=== PATIENT | male | born 1970 | race Two or more races ===

== ENCOUNTER 2025-02-28 11:02 | Outpatient (AMB) | payer MEDICARE, MEDICAID, SELFPAY ==
--- NOTE | 2025-02-28 07:49 | MHC.OFFVIS ---
Intake Visit Reasons: LDCT Allergies dextromethorphan (From NYQUIL) Allergy (Mild, Unverified 01/09/20 17:17) REDNESS doxylamine (From NYQUIL) Allergy (Mild, Unverified 01/09/20 17:17) REDNESS pseudoephedrine (From NYQUIL) Allergy (Mild, Unverified 01/09/20 17:17) REDNESS tramadol (TRAMADOL) Allergy (Mild, Unverified 01/09/20 17:17) RECTAL BLEEDING cortisone (CORTISONE) Allergy (Unknown, Unverified 01/09/20 17:17) LOCAL REACTION AND HIVES hydrocodone (HYDROCODONE) Adverse Reaction (Mild, Unverified 01/09/20 17:17) UNABLE TO SLEEP acetaminophen (Vicodin) Adverse Reaction (Unknown, Verified 06/26/15 00:00) insomnia Cortisone Adverse Reaction (Unknown, Uncoded 06/26/15 00:00) skin peels, burning sensation NyQuil Adverse Reaction (Unknown, Uncoded 06/26/15 00:00) dry skin HPI HPI LDCT: Details: Initial visit for this 54yo smoker with a 40PYH. Patient started smoking at age 11 for 39 years at 1+ppd. Quit almost 4 years ago in 04/2021. . Denies marijuana use. Denies second hand smoke exposure. Denies exposure to chemicals or substances like asbestos. . Denies known family history of lung cancer. Denies personal history of cancers. Denies chest CT in last year. . Denies recent travel outside the [place]. Denies recent respiratory illness or recent hospitalization for respiratory issues. Denies testing positive for COVID. Denies receiving COVID Vaccine. . Denies fever, chills, new/worsening cough, hemoptysis, hoarseness or dysphagia. Denies significant chest pain, significant dyspnea or unintentional weight loss. Patient Lung Cancer Screening Questionnaire reviewed with patient by provider. . Shared Decision Making Completed. Patient meets criteria. Discussed in detail with patient, the risk vs benefit of LDCT screening. Patient consents to proceed with scan. Discussed smoking cessation. [facility] Medical History (Updated 02/28/25 @ 11:33 by Emily Cintron PA-C) Type 2 diabetes mellitus Hyperlipidemia Hypertension Personal history of nicotine dependence Surgical History (Updated 02/28/25 @ 11:25 by Emily Cintron PA-C) History of tooth extraction Social History (Updated 02/28/25 @ 11:33 by Emily Cintron PA-C) Patient Tobacco Use Status: Former Tobacco user Years Smoked: (onset 11yo, 1+ppd x 39yrs, 40pyh, quit 04/2021) Assessment & Plan Assessment & Plan (1) Personal history of nicotine dependence: Comment: (onset 11yo, 1+ppd x 39yrs, 40pyh, quit 04/2021) Code(s): Z87.891 - Personal history of nicotine dependence Category: Medical Plan: - SDM visit completed today in office. - Patient meets criteria for LDCT for lung cancer screening purposes and is asymptomatic. - Smoking cessation counseling offered. Patients can always call [phone]. - Will arrange for a LDCT scan of the chest for screening purposes at [facility]. - Risks, benefits, and alternatives were discussed in detail and the patient agrees to proceed. - Risks discussed include but are not limited to: radiation exposure, anxiety during testing and while awaiting results, false negatives, false positives and possibility of additional intervention such as further imaging or surgical procedures for benign disease. - Benefits are obviously detection of lung cancer at an early stage which can lead to improved outcomes. - Discussed the importance of screening program compliance with adherence to yearly LDCT scan as scheduled - or sooner interval scans for personalized screening regimen. - Discussed follow up plan. Our office will send a letter discussing results and if needed set up phone call and office visit based on CT findings. - Patient educated on results categorization and the management decisions for suspicious findings potentially found on the screening LDCT scan. Any patient with a Lung RADS score of 3 or 4 will be reviewed by a multidisciplinary team at [facility] to form a plan of action in regards to scan findings. - If further work up is warranted for a suspicious lung finding this will be followed by the Lung Cancer Screening program in conjunction with the Thoracic Surgery Department at [facility]. - A copy of the office note and LDCT will be sent to the patient's PCP - as well as documentation on any associated further plans of care. - Incidental findings on LDCT are the PCP's responsibility. These findings are indicated with an S finding on the LDCT Assessment. A note discussing the findings will be sent to the PCP who is then responsible for further management. - All questions answered.? Coding Level of Care Code Lung Cancer Screening G0296 Diagnoses Personal history of nicotine dependence Z87.891
--- OUTSIDE RECORDS SUMMARY | 2025-02-28 13:13 | XMS_ITS | Clinical Summary ---
Author Organization [employer] Address [address] [place] [address] Care Team Providers Care Setter Out Name Role Phone Davis Fregoso MD Primary Care Prov ider Allergies Active Allergy Reactions Criticality Noted Date Comments Germanium Hives 12/09/2024 Medications metFORMIN (Glucophage) 1000 MG tablet Take 1,000 mg by mouth with breakfast and with evening meal. Active simvastatin (Zocor) 20 MG tablet Take 20 mg by mouth at bedtime. Active Active Problems Problem Noted Date Diagnosed Date Type 2 diabetes mellitus wit hout complication, without long-term current use of insulin 02/03/2025 Encounter for medical examination to establish c are 12/09/2024 Assessment & Plan (12/09/2024 2:09 PM EDT): Last pcp visit over 8 months ER: jose 07/2024 abdominal pain/gastroenteritis Hospitalizations: - Pmhx; DM, hyperlipidemia, htn, lumbar disc disease, knee OA Pshx: - All: lumbar cortisone shot (tachycardia) Meds: metformin 1000mg bid, simvastatin 20mg, Colonosocpy: done 1 year ago at [facility], refers told to be repeated in 10 yrs Encounters Date Type Department Care Team Description 12/09/2024 1:45 PM EDT Telemedicine [facility] [address] [place] [address] Davis Fregoso MD Encounter for medical examination to establish care (Primary Dx); Type 2 diabetes mellitus without complication, without long-term current use of insulin ([facility]) 12/09/2024 Travel 12/06/2024 Telephone [facility] [address] [place] [address] Davis Fregoso MD chart prep from Last 3 Months Family History Medical History Relation Name Comments Diabetes Father Diabetes Mother Lupus Mother Relation Name Status Comments Father Mother Social History Tobacco Use Types Packs/Day Years Used Date Smoking Tobacco: Former Cigarettes 1 34 S tarted: 1986 Smokeless Tobacco: Never Tobacco Cessation:Counseling Given: Not Answered Alcohol Use Standard Drinks/Week Comments Not Currently 0 (1 standard drink = 0.6 oz pur e alcohol) Depression Answer Date Recorded Patient Health Questionnaire-9 Score 7 12/09/2024 Patient Health Questionnaire-9 Score 7 12/09/2024 Last PHQ-9: Questionnaire Data Not on file 0 12/09/2024 Depression Answer Date Recorded Patient Health Questionnaire-2 Score 2 12/09/2024 Sex and Gender Information Value Date Recorded Sex Assigned at Male 12/03/2024 3:23 PM EDT Legal Sex Male 3:22 PM EDT Gender Identity Male 12/03/2024 3:23 PM EDT Sexual Orientation Straight 12/03/2024 3: 23 PM EDT Plan of Treatment Health Maintenance Due Date Last Done Comments CT Colonography 1972 Colonoscopy 1972 Colorectal Cancer Screening 1972 FIT DNA/Cologuard 1972 FIT 1972 FOBT 1972 HIV Screening 1972 Lipid Panel 1972 SDOH Screening 1972 Sigmoidoscopy 1972 Disability Screening 1972 Diabetes: Foot Exam 1982 Eye Exam 1982 Alcohol/Substance Use Screening 1984 Family Planning (PISQ) 1987 Hepatitis C Screening 1990 Diabetes: Urine Protein Screening 1991 Hepatitis B Vaccines (1 of 3 - 19+ 3-dose series) 1991 Pneumococcal Vaccine: 50+ Years (1 of 2 - PCV) 1991 Diabetes: Hemoglobin A1C 04/18/2016 01/18/2016 DTaP/Tdap/Td Vaccines (2 - T d or Tdap) 07/14/2016 07/14/2006 Zoster Vaccines (1 of 2) 2022 COVID-19 Vaccine (1 - 2023-2 5 season) 2024 Influenza Vaccine (#1) 2024 6, 04/13/2010, 02/13/2007 Depression Screening 12/09/2025 12/09/2024, 12/09/2024 Tobacco Screening 02/03/2026 02/03/2025 RSV Patients and Patients Aged 60 years or older (1 - 1-dose 75+ series) 2047 HIB Vaccines Aged Out No longer eligi ble based on patient's age to complete this topic HPV Vaccines Aged Out No longer eligi ble based on patient's age to complete this topic Hepatitis A Vaccines Aged Out No long er eligible based on patient's age to complete this topic IPV Vaccines Aged Out No longer eligi ble based on patient's age to complete this topic Meningococcal B Vaccine Aged Out No l onger eligible based on patient's age to complete this topic Meningococcal Vaccine Aged Out No juliet nawaf eligible based on patient's age to complete this topic RSV under 20 months Aged Out No longe r eligible based on patient's age to complete this topic Rotavirus Vaccines Aged Out No longer eligible based on patient's age to complete this topic [place] [address] [place] [address] MEDICARE ADVANTAGE HMO [facility] Care Teams Setter Out Relationship Specialty Start Date End Date Davis Fregoso MD [address] [place] [phone] PCP - General Internal Medicine 12/11/24
== END 2025-02-28 12:49 | disposition home or self-care (01) ==
PROVIDERS: PCP Internal Medicine; Referring Provider Internal Medicine; Visit Provider Physician Assistant Medical
DX: Z87.891 Personal history of nicotine dependence (principal)
CPT/HCPCS: G0296

== ENCOUNTER 2025-02-28 11:33 | Outpatient (REF) | payer MEDICARE, SELFPAY ==
--- NOTE | ~2025-02-28 | CT_ITS ---
EXAMINATION: CT LUNG SCREENING HISTORY: Z87.891 - Personal history of nicotine dependence TECHNIQUE: Low dose axial images were obtained from the sternal notch to upper abdomen without IV contrast per standard departmental protocol. Sagittal and coronal reformatted images were also obtained and reviewed. One or more of the following techniques was used for dose reduction: Automated exposure control, adjustment of the mA and/or kV according to patient size, use of iterative reconstruction technique. DLP: 84 mGy-cm COMPARISON: There are no prior studies available for comparison. FINDINGS: Lung nodules: There are 1-2 mm nodules in the right upper lobe (series 4, image 52) and in the left upper lobe (series 4, image 45). A 3 mm nodule along the right minor fissure likely represents a tiny lymph node. Emphysema: mild Coronary Calcification: moderate Aortic Arch Calcification: none Potentially Significant Incidentals : none Additional Chest Findings: There is no pleural or pericardial effusion. No mediastinal or axillary lymphadenopathy is identified. Visualized upper abdomen: The visualized portions of the liver, spleen, and adrenals have an unremarkable unenhanced appearance. CT/CT lung screening IMPRESSION: No suspicious pulmonary nodules are identified. LUNG-RADS ASSESSMENT: Lung-RADS 2: Benign MANAGEMENT: Continue annual screening with LDCT in 12 months Category S: N/A Electronically signed by: Eldon Mike MD 02/28/2025 12:22 PM [facility]
--- OUTSIDE RECORDS SUMMARY | 2025-02-28 13:59 | XMS_ITS | Clinical Summary ---
Author Organization [facility] Address [address] [place] [address] Phone Care Team Providers Care [employer]r Name Role Phone Yves Caro MD Primary Care Provider [phone] Allergies Active Allergy Reactions Criticality Noted Date Comments Hydrochlorothiazide 09/24/2007 diziness Latex Hives 07/03/2024 Medications fentaNYL (DURAGESIC) 100 mcg/hr Place 1 Patch onto the skin every 72 hours. Active glipiZIDE (GLUCOTROL XL) 5 mg 24 hr tablet Take 1 tablet (5 mg total) by mouth 1 (one) time each day. 01/20/2016 Active lisinopriL (PRINIVIL,ZESTR IL) 20 mg tablet Take 1 tablet (20 mg total) by mouth 1 (one) time each day. 01/20/2016 Active metFORMIN (GLUCOPHAGE) 1,000 mg tablet Take 1,000 mg by mouth 2 times daily (with meals). 01/20/2016 Active oxyCODONE (ROXICODONE) 30 mg immediate release tablet Take 30 mg by mouth every 4 hours as needed. Active QUEtiapine (SEROquel) 50 mg tablet Take 50 mg by mouth 2 times daily. Active simvastatin (ZOCOR) 20 mg tablet Take 1 Tab by mouth at bedtime. 01/20/2016 Active zolpidem (AMBIEN) 10 mg tablet Take by mouth at bedtime as needed. Active Active Problems Problem Noted Date Diagnosed Date Type 2 diabetes mellitus (CMS/HCC V24, CMS/HCC V 28) 08/11/2009 Acne 06/16/2007 Low back pain 06/16/2007 Overview (05/15/2024): Radiated to both legs Seen by Adela in past. ?appt 08/07 Pt states intol injection med (?steroid) Allergic rhinitis 07/14/2006 Asthma 07/14/2006 Essential hypertension, benign 07/14/2006 Obesity, unspecified 07/14/2006 Immunizations Immunization Administration Dates Next Due Influenza trivalent, with pr eservative (Fluzone; Afluria) 6mo and older 01/20/2016,04/13/2010,02/13/2007 Tdap Tetanus diptheria acell ular pertussis (Boostrix; Adacel) 7yo and older 07/14/2006 Medical History Medical History Date Comments Other acne 07/14/2006 DX:Other acne Obesity, unspecified 07/14/2006 DX:Obesity, unspecified Other atopic dermatitis and related conditions 07/14/2006 DX:Other atopic dermatitis a nd related conditions Unspecified asthma(493.90) 07/14/2006 DX:Un specified asthma(493.90) Otalgia, unspecified 01/10/2007 DX:Otalgia, unspecified Type II or unspecified type diabetes mellitus with unspecified complication, not stated as uncontrolled DX:Type II or unspecified ty pe diabetes mellitus with unspecified complication, not stated as uncontrolled Essential hypertension, benign 07/14/2006 D X:Essential hypertension, benign Family History Medical History Relation Name Comments Cataracts Mother Other: lupus Mother Blindness Neg Hx Glaucoma Neg Hx Macular degeneration Neg Hx Strabismus Neg Hx Relation Name Status Comments Brother 1 Alive DM Brother 2 Alive thyroid problem s Brother 3 Alive Brother 4 Alive Father Alive Mother Alive DM, ESRD on HD. Sister 1 Alive Sister 2 Alive Sister 3 Alive Social History Tobacco Use Types Packs/Day Years Used Date Smoking Tobacco: Every Day Cigarettes Last attempted to quit: 09/10/2005 Smokeless Tobacco: Never Alcohol Use Standard Drinks/Week Comments Not Asked 0 (1 standard drink = 0.6 oz pur e alcohol) Sex and Gender Information Value Date Recorded Sex Assigned at Not on file Legal Sex Male 11:29 PM EST Gender Identity Not on file Sexual Orientation Not on file Obstetrics History Last Filed Vital Signs Vital Sign Reading Time Taken Comments Blood Pressure 141/87 07/04/2024 5:00 AM EDT Pulse 75 07/04/2024 5:00 AM EDT Temperature 36.7 C (98 F) 07/04/2024 3:36 AM EDT Respiratory Rate 15 07/04/2024 5:00 AM EDT Oxygen Saturation 99% 07/04/2024 5:00 AM EDT Inhaled Oxygen Concentration - - Weight 89.8 kg (198 lb) 07/03/2024 8:47 PM EDT Height 165.1 cm (5' 5 ) 07/03/2024 8:47 PM EDT Body Mass Index 32.95 07/03/2024 8:47 PM EDT Plan of Treatment Health Maintenance Due Date Last Done Comments Colorectal Cancer Screening: Colonoscopy 1972 Diabetes: Annual Foot Exam 1982 Diabetes: Annual Retina Eye Exam 1982 Hepatitis B Vaccines (1 of 3 - 19+ 3-dose series) 1991 DTaP,Tdap,and Td Vaccines (2 - Td or Tdap) 07/14/2016 07/14/2006 Pneumococcal Vaccine: 50+ Years (2 of 2 - PCV) 08/29/2018 08/29/2017 RSV Immunization Adult Patients (1 - Risk 50-74 years 1-dose series) 2022 Zoster Vaccines (1 of 2) 2022 Depression Screening 04/24/2024 Cholesterol Screening (Lipid Panel) 05/16/2024 01/18/2016 Diabetes: Annual Urine Albumin-Creatinine Ratio (uACR) 05/16/2024 01/18/2016 Diabetes: Blood Sugar Contro l Test (HGBA1C) 05/16/2024 01/18/2016 HIV Screening 05/16/2024 Hepatitis C Screening 05/16/2024 Medicare Annual Wellness Visit 05/16/2024 Social Influencers of Health Screening 05/16/2024 COVID-19 Vaccine (1 - 2023-2 5 season) 2024 Influenza Vaccine (#1) 2024 6, 04/13/2010, 02/13/2007 Diabetes: Annual GFR (Glomerular Filtration Rate) 07/03/2025 07/03/2024, 01/18/2016 Hypertension/CHF/CAD Annual BMP Blood Test 07/03/2025 07/03/2024, 01/18/2016 HIB Vaccines Aged Out No longer eligi [...] on patient's age to complete this topic MMR Vaccines Aged Out No longer eligi ble based on patient's age to complete this topic Meningococcal ACWY Vaccine Aged Out N o longer eligible based on patient's age to complete this topic Meningococcal B Vaccine Aged Out No l onger eligible based on patient's age to complete this topic RSV Immunization Patients Under 20 months Aged Out No longer eligible b ased on patient's age to complete this topic Varicella Vaccines Aged Out No longer eligible based on patient's age to complete this topic Procedures Procedure Name Priority Date/Time Associated Diagnosis Comments COMPREHENSIVE METABOLIC PANEL STAT 07/03/2024 8:38 PM EDT HM URINE ALBUMIN CREATININE RATIO Routine 01/18/2016 HEMOGLOBIN A1C Routine 01/18/2016 LIPID PANEL Routine 01/18/2016 from Last 3 Months or Most Recently Relevant to Health Maintenance Results * (ABNORMAL) Comprehensive metabolic panel (07/03/2024 8:38 PM EDT) Sodium 133 133 - 145 mmol/L LAB CHEMISTRY METHOD 07/03/2024 9:[address] [facility] Potassium 4.2 3.5 - 5.5 mmol/L LAB CHEMISTRY METHOD 07/03/2024 9:24 PM [facility] Chloride 102 96 - 110 mmol/L LAB CHEMISTRY METHOD 07/03/2024 9:[address] [facility] CO2 20(L) 21 - 32 mmol/L LAB CHEMISTRY METHOD 07/03/2024 9:[address] [facility] Anion Gap 11 3 - 11 LAB CHEMISTRY METHOD 07/03/2024 9:[address] [facility] Glucose 222(H) 70 - 100 mg/dL LAB CHEMISTRY METHOD 07/03/2024 9:[address] [facility] BUN 22 5 - 25 mg/dL LAB CHEMISTRY METHOD 07/03/2024 9:[address] [facility] Creatinine 1.24 0.70 - 1.30 mg/dL LAB CHEMISTRY METHOD 07/03/2024 9:[address] [facility] eGFR 70 >=60 mL/min/1. 73m2 LAB CHEMISTRY METHOD 07/03/2024 9:[address] [facility] Comment:Calculation based on the Chronic Kidney Disease Epidemiology Collaboration (CKD-EPI) equation refit without adjustment for race. BUN/Creatinine Ratio 17.7 LAB CHEMISTRY METHOD 07/03/2024 9:[address] [facility] Calcium 10.2 8.5 - 10.5 mg/dL LAB CHEMISTRY METHOD 07/03/2024 9:[address] [facility] AST (SGOT) 33 10 - 42 unit/L LAB CHEMISTRY METHOD 07/03/2024 9:[address] [facility] ALT (SGPT) 35 10 - 60 unit/L LAB CHEMISTRY METHOD 07/03/2024 9:[address] [facility] Alkaline Phosphatase 84 42 - 121 unit/L LAB CHEMISTRY METHOD 07/03/2024 9:[address] [facility] Total Protein 8.3(H) 6.0 - 8.0 g/dL LAB CHEMISTRY METHOD 07/03/2024 9:[address] [facility] Albumin 4.4 3.2 - 5.0 g/dL LAB CHEMISTRY METHOD 07/03/2024 9:[address] [facility] Total Bilirubin 0.6 0.0 - 1.4 mg/dL LAB CHEMISTRY METHOD 07/03/2024 9:[address] [facility] Blood Venous blood specimen / Unknown Venipuncture / Unknown 07/03/2024 8:38 PM EDT 07/03/2024 8:59 PM EDT Rudy Augustine DO LAB BLOOD ORDERABLES Final Res ult [facility] [address] [place] [address], [place] [phone] * HM Urine Albumin Creatinine Ratio (01/18/2016) Urine Albumin Creatinine Ratio abstracted Historical Provider HEALTH MAINTENANCE Final Result * (ABNORMAL) Hemoglobin A1c (01/18/2016) Hemoglobin A1C 9.3(A) 4.0 - 6.0 % Blood Venous blood specimen / Unknown Historical Provider LAB BLOOD ORDERABLES Pia l Result * (ABNORMAL) Lipid panel (01/18/2016) LDL/HDL Ratio 6(A) 0 - 4 Triglycerides 319(A) 0 - 150 mg/dL Cholesterol 253(A) 0 - 200 mg/dL HDL 40 >=40 mg/dL LDL Cholesterol 150(A) 0 - 100 mg/dL Blood Venous blood specimen / Unknown Historical Provider LAB BLOOD ORDERABLES Pia l Result from Last 3 Months or Most Recently Relevant to Health Maintenance Insurance [facility] MEDICARE Care Teams [employer]r Relationship Specialty Start Date End Date Yves Caro MD PCP - General Internal Medicine 07/04/24
== END 2025-02-28 11:34 | disposition home or self-care (01) ==
LOC: HO.CT 11:33
PROVIDERS: PCP Internal Medicine; Visit Provider Physician Assistant Medical
DX: Z12.2 Encounter for screening for malignant neoplasm of respiratory organs (principal); Z87.891 Personal history of nicotine dependence
CPT/HCPCS: 71271; G0296

== ENCOUNTER → 2025-02-28 11:36 | Outpatient (BNV) | payer MEDICARE, SELFPAY | PROVIDERS: PCP Internal Medicine; Visit Provider Radiology Diagnostic Radiology | DX: Z12.2 Encounter for screening for malignant neoplasm of respiratory organs (principal); Z87.891 Personal history of nicotine dependence | CPT/HCPCS: 71271 ==